=== PATIENT | female | born 1985 | race Caucasian/White ===

== ENCOUNTER 2023-05-13 11:36 | Inpatient (IN) | payer SELFPAY ==
[~2023-05-13] VITALS: Ht 162.6 cm; Wt 136.4 kg
[2023-05-13 12:30] LABS: BASOPHILS % (AUTO) 0.3 % (0-1); EOSINOPHILS # (AUTO) 0.2 X10'3 (0-0.9); EOSINOPHILS % (AUTO) 1.9 % (0-6); HEMATOCRIT 38.4 % (35.0-45.0); HEMOGLOBIN 12.3 g/dl (12.0-16.0); LYMPHOCYTES # (AUTO) 2.4 X10'3 (1.1-4.8); LYMPHOCYTES % (AUTO) 25.5 % (21-51); MEAN CORPUSCULAR HEMOGLOBIN 25.2 PG (27.0-31.0); MEAN CORPUSCULAR HGB CONC 31.9 g/dL (33.0-36.5); MEAN CORPUSCULAR VOLUME 78.8 FL (78-98); MEAN PLATELET VOLUME 8.1 FL (7.4-10.4); MONOCYTES # (AUTO) 0.6 X10'3 (0-0.9); MONOCYTES % (AUTO) 5.9 % (2-12); NEUTROPHILS # (AUTO) 6.3 X10'3 (1.8-7.7); NEUTROPHILS % (AUTO) 66.4 % (42-75); PLATELET COUNT 343 X10'3 (140-440); RED BLOOD COUNT 4.87 X10'6 (4.20-5.60); RED CELL DISTRIBUTION WIDTH 15.7 % (11.5-14.5); WHITE BLOOD COUNT 9.5 X10'3 (4.5-11.0)
[2023-05-13 12:33] LABS: ALANINE AMINOTRANSFERASE 18 U/L (12-78); ALBUMIN 3.5 G/DL (3.4-5.0); ALBUMIN/GLOBULIN RATIO 0.9 (1.1-1.5); ALKALINE PHOSPHATASE 118 IU/L (46-116); ANION GAP 9 (8-16); ASPARTATE AMINO TRANSFERASE 14 U/L (10-37); BILIRUBIN,TOTAL 0.2 MG/DL (0.1-1.0); BLOOD UREA NITROGEN 18 MG/DL (7-18); CALCIUM 9.2 MG/DL (8.5-10.1); CHLORIDE 103 MMOL/L (99-107); CREATININE 0.82 MG/DL (0.40-0.90); GLUCOSE 136 MG/DL (70-104); POTASSIUM 4.2 MMOL/L (3.5-5.1); SODIUM 137 MMOL/L (135-145); TOTAL CARBON DIOXIDE 24.6 MMOL/L (24-32); TOTAL PROTEIN 7.5 G/DL (6.4-8.2); eGFR 78 ML/MIN
[2023-05-13] MEDS ORDERED: aspirin 81mg tab.chew PO ONE (12:50)
[2023-05-13] MEDS ORDERED: nitroGLYCERIN 0.4mg SUBLingual tab SL PRN ×3 (12:50→16:45)
[2023-05-13] MEDS ORDERED: magnesium hydroxide 30ml (MOM) UD suspension PO PRN (14:50)
[2023-05-13] MEDS ORDERED: potassium Cl 40MEQ/1/2NS 520ml 520 ML IV PRN (14:50)
[2023-05-13] MEDS ORDERED: magnesium 4gm in 100ml NS 100 ML IV PRN (14:50)
[2023-05-13] MEDS ORDERED: acetaminophen 325mg tablet PO PRN (14:50)
[2023-05-13] MEDS ORDERED: mag hydrox/Alum hydrox/simeth 30ml oral suspension PO PRN (14:50)
[2023-05-13] MEDS ORDERED: magnesium Cl slow-release 64mg tablet PO PRN (14:50)
[2023-05-13] MEDS ORDERED: potassium Cl 20 mEq SR tablet PO PRN ×2 (14:50)
[2023-05-13] MEDS ORDERED: ondansetron/PF 4mg/2ml inj IV PRN (14:50)
[2023-05-13] MEDS ORDERED: INSU100V9 SQ (15:35)
[2023-05-13] MEDS ORDERED: INSU100C10 SQ (15:35)
[2023-05-13] MEDS ORDERED: LEVO200T PO (15:35)
[2023-05-13] MEDS ORDERED: dextrose 50%-water 50ml dispensing syringe IV PRN ×2 (16:05)
[2023-05-13] MEDS ORDERED: insulin Lispro (HumaLOG) vial - multi-dose SQ SCH (16:05)
[2023-05-13] MEDS ORDERED: MESSAGE TO PHARMACY PO ONE (16:05)
[2023-05-13] MEDS ORDERED: glucagon, human recombinant 1mg kit SUBCUT PRN (16:05)
[2023-05-13] MEDS: atorvastatin 20mg tablet PO SCH (16:05)
[2023-05-13] MEDS ORDERED: DEXTROSE 15 GM of carb/4 tabs (each vial/BOTTLE has 4 tablets) PO PRN ×2 (16:05)
[2023-05-13] MEDS ORDERED: regadenoson 0.4mg/5ml syringe IV PRN (16:45)
[2023-05-13] MEDS ORDERED: NORMAL SALINE IV ONE (16:45)
[2023-05-13] MEDS ORDERED: aminophylline 250mg/10ml inj. IV PRN (16:45)
[2023-05-13] MEDS ORDERED: SINCALIDE IV ONE (16:45)
[2023-05-13] MEDS ORDERED: metoprolol tartrate 1mg/ml inj IV PRN (16:45)
[2023-05-13 18:53] LABS: CLARITY,URINE CLEAR (Clear); COLOR,URINE YELLOW (Yellow); GLUCOSE, URINE NEGATIVE (Neg); KETONES,URINE NEGATIVE (Neg); LEUKOCYTE ESTERASE ,URINE NEGATIVE (Neg); NITRITES, URINE NEGATIVE (Neg); OCCULT BLOOD,URINE NEGATIVE (Neg); PROTEIN,URINE NEGATIVE (Neg); UROBILINOGEN,URINE 0.2 E.U/dL (0.2-1.0)
[2023-05-13 18:55] LABS: UA COLLECTION TYPE CLN CATCH MIDSTREAM
[2023-05-13] MEDS ORDERED: insulin glargine (Lantus) pen - multi-dose SQ SCH (21:00)
[2023-05-13] MEDS: heparin, porcine 5000 units/ml vial SQ SCH (21:43)
[2023-05-13 22:00] VITALS: BP 135/84; PULSE 77; RESP 16; TEMP 98.2; O2SAT 99
[2023-05-13 22:35] VITALS: RESP 16; O2SAT 99
[2023-05-14] VITALS (12 sets, daily range): BP systolic 106–141; BP diastolic 65–88; PULSE 66–103; RESP 14–26; TEMP 98.8–99.2; O2SAT 98–100
--- NOTE | 2023-05-14 01:46 | NUR ---
MESSAGE: [id number] LIA MONROE 38. PT TAKES 50UNITS OF LANTUS IN AM. CAN PT TAKE HOME DOSE IN AM INSTEAD OF LANTUS AT NIGHT PER OUR PROTOCOL? THANK YOU. [phone]
[2023-05-14 06:19] LABS: BASOPHILS % (AUTO) 0.4 % (0-1); EOSINOPHILS # (AUTO) 0.2 X10'3 (0-0.9); EOSINOPHILS % (AUTO) 2.5 % (0-6); HEMATOCRIT 37.9 % (35.0-45.0); HEMOGLOBIN 12.2 g/dl (12.0-16.0); LYMPHOCYTES # (AUTO) 2.3 X10'3 (1.1-4.8); LYMPHOCYTES % (AUTO) 29.3 % (21-51); MEAN CORPUSCULAR HEMOGLOBIN 25.2 PG (27.0-31.0); MEAN CORPUSCULAR HGB CONC 32.2 g/dL (33.0-36.5); MEAN CORPUSCULAR VOLUME 78.3 FL (78-98); MONOCYTES # (AUTO) 0.4 X10'3 (0-0.9); NEUTROPHILS # (AUTO) 4.9 X10'3 (1.8-7.7); NEUTROPHILS % (AUTO) 62.8 % (42-75); PLATELET COUNT 325 X10'3 (140-440); RED BLOOD COUNT 4.84 X10'6 (4.20-5.60); WHITE BLOOD COUNT 7.8 X10'3 (4.5-11.0)
--- NOTE | 2023-05-14 06:38 | NUR ---
Problems reprioritized. Patient report given, questions answered & plan of care reviewed with BRYN MANTILLA.
[2023-05-14 06:51] LABS: ALANINE AMINOTRANSFERASE 16 U/L (12-78); ALBUMIN 3.3 G/DL (3.4-5.0); ALBUMIN/GLOBULIN RATIO 0.9 (1.1-1.5); ALKALINE PHOSPHATASE 115 IU/L (46-116); ANION GAP 9 (8-16); ASPARTATE AMINO TRANSFERASE 10 U/L (10-37); BILIRUBIN,TOTAL 0.2 MG/DL (0.1-1.0); BLOOD UREA NITROGEN 13 MG/DL (7-18); BUN/CREATININE RATIO 16.5 (10.0-20.0); CALCIUM 8.7 MG/DL (8.5-10.1); CHLORIDE 106 MMOL/L (99-107); CHOL/HDL RATIO 2.8 (0.00-4.99); CHOLESTEROL 111 MG/DL (0-200); CREATININE 0.79 MG/DL (0.40-0.90); GLUCOSE 135 MG/DL (70-104); HDL CHOLESTEROL 39 MG/DL (35-60); LDL CHOLESTEROL 69 MG/DL (50-100); MAGNESIUM 1.8 MG/DL (1.5-2.4); POTASSIUM 4.3 MMOL/L (3.5-5.1); SODIUM 138 MMOL/L (135-145); TOTAL CARBON DIOXIDE 23.4 MMOL/L (24-32); TRIGLYCERIDES 71 MG/DL (20-135); eGFR 81 ML/MIN
--- NOTE | 2023-05-14 06:53 | NUR ---
Patient in room ORTHO 4014. I have received report from ONEIDA Dalton and had the opportunity to ask questions and assume patient care.
[2023-05-14] MEDS ORDERED: levoTHYROXINE 100mcg tablet PO SCH (07:00)
[2023-05-14] MEDS: atorvastatin 20mg tablet PO SCH (07:50)
[2023-05-14] MEDS: heparin, porcine 5000 units/ml vial SQ SCH (07:51)
[2023-05-14] MEDS ORDERED: aspirin 81mg, enteric-coated 1 TAB TABLET.DR PO SCH (08:00)
--- NOTE | 2023-05-14 15:00 | NUR ---
I have reviewed and agree with the interventions, assessments, and documentation by Olivia Matthews LVN.
--- NOTE | 2023-05-14 15:53 | NUR ---
Diabetes consult: Pt presents with an A1c 8% and BG of 135-186mg/dl per EMR. Pt and pt's daughter at bedside during time of visit. Pt reports just moving to [place] recently and would like help connecting to a primary doctor for DM management; attempted to contact case management and left a message. Pt reports prior A1c of 14% and BG in the 400mg/dl 2 years ago. When discussed new A1c of 8%, pt was happy with the improvement and states she has been working hard on improving her BG and A1c. Pt reports eating a balanced carbohydrate controlled diet at home, counts carbohydrate for her sliding scaled insulin, and takes insulin as prescribed. Provided verbal/written diabetes nutrition education to pt with RD contact information. Encouraged pt to reach out for any nutrition questions or concerns. Will continue to monitor. Addendum: 05/14/23 at [address] Amended: Links added.
[2023-05-14] MEDS ORDERED: ATOR20TA66 PO (16:26)
[2023-05-14] MEDS ORDERED: ASPI-1071 PO (16:26)
[2023-05-14] MEDS ORDERED: METR-159 PO (16:26)
[2023-05-14] MEDS ORDERED: EMPA10TA PO (16:26)
[2023-05-14] MEDS ORDERED: CIPR-20 PO (16:26)
[2023-05-14] MEDS ORDERED: NITR0.4T51 SL (16:26)
[2023-05-14] MEDS ORDERED: METO-395 PO (16:26)
--- NOTE | 2023-05-14 17:46 | NUR ---
Patient discharge home with family. MD called and updated medication list which could not be edited after it was finalized. Changes to medication list is in resident chart and called into [facility] on [facility] [phone]. Discharge information was provided and reviewed with patient, whom verbalize understanding. Patient discharge home with all belongings. Addendum: 05/14/23 at 1805 by Robert Felix LVN Patient was also informed to f/u with Dr. Lemus with address and phone number added to discharge paperwork. [facility] [facility] [address] in [place] [address]
== END 2023-05-14 17:30 | disposition home or self-care (01) | DRG 313 ==
LOC: ER 11:37 → ED HOLD 14:56 → EDBEDREQ 19:55 → ORTHO 4S 22:00
PROVIDERS: ADMIT Family Medicine; ATTEND Family Medicine
PROC: 4A02XM4 Measurement of Cardiac Total Activity, External Approach (ICD-10-PCS; principal; 2023-05-13)
PROC: 3E073KZ Introduction of Other Diagnostic Substance into Coronary Artery, Percutaneous Approach (ICD-10-PCS; 2023-05-13)
DX: R07.89 Other chest pain (principal); Z68.43 Body mass index [BMI] 50.0-59.9, adult; K80.10 Calculus of gallbladder with chronic cholecystitis without obstruction; I25.10 Atherosclerotic heart disease of native coronary artery without angina pectoris; E66.01 Morbid (severe) obesity due to excess calories; E11.9 Type 2 diabetes mellitus without complications; E03.9 Hypothyroidism, unspecified; K76.0 Fatty (change of) liver, not elsewhere classified; I25.2 Old myocardial infarction; Z95.1 Presence of aortocoronary bypass graft; Z95.5 Presence of coronary angioplasty implant and graft; Z79.890 Hormone replacement therapy; Z83.3 Family history of diabetes mellitus; Z87.891 Personal history of nicotine dependence; Z71.3 Dietary counseling and surveillance; Z91.199 Patient's noncompliance with other medical treatment and regimen due to unspecified reason; Z79.82 Long term (current) use of aspirin; Z79.899 Other long term (current) drug therapy
CPT/HCPCS: 36415; 71045; 76700; 78452; 80053; 80061; 81003; 82948; 83036; 83735; 83880; 84145; 84439; 84443; 84484; 85025; 85610; 87081; 93017; 99285; A9500; G0378; J1644; J1815; J2785

== ENCOUNTER 2023-09-26 23:03 | Emergency (ER) | payer SELFPAY ==
[~2023-09-26] VITALS: Ht 165.1 cm; Wt 186.0 kg
[~2023-09-26 23:03] MED LIST: ASPI-1071 PO; ATOR20TA66 PO; EMPA10TA PO; INSU100C10 SQ; INSU100V9 SQ; LEVO200T PO; METO-395 PO; NITR0.4T51 SL
[2023-09-26 23:08] VITALS: BP 146/77; PULSE 92; RESP 18; TEMP 98.6; O2SAT 97
[2023-09-26 23:36] LABS: HEMOGLOBIN 12.5 g/dl (12.0-16.0)
[2023-09-26 23:37] LABS: BASOPHILS % (AUTO) 0.4 % (0-1); EOSINOPHILS # (AUTO) 0.1 X10'3 (0-0.9); EOSINOPHILS % (AUTO) 1.5 % (0-6); HEMATOCRIT 39.4 % (35.0-45.0); LYMPHOCYTES # (AUTO) 2.8 X10'3 (1.1-4.8); LYMPHOCYTES % (AUTO) 29.2 % (21-51); MEAN CORPUSCULAR HEMOGLOBIN 24.7 PG (27.0-31.0); MEAN CORPUSCULAR HGB CONC 31.8 g/dL (33.0-36.5); MEAN CORPUSCULAR VOLUME 77.8 FL (78-98); MONOCYTES # (AUTO) 0.6 X10'3 (0-0.9); MONOCYTES % (AUTO) 6.2 % (2-12); NEUTROPHILS % (AUTO) 62.7 % (42-75); PLATELET COUNT 366 X10'3 (140-440); RED BLOOD COUNT 5.06 X10'6 (4.20-5.60); RED CELL DISTRIBUTION WIDTH 15.9 % (11.5-14.5); WHITE BLOOD COUNT 9.5 X10'3 (4.5-11.0)
[2023-09-26 23:44] LABS: ALANINE AMINOTRANSFERASE 21 U/L (12-78); ALBUMIN 3.7 G/DL (3.4-5.0); ALBUMIN/GLOBULIN RATIO 0.9 (1.1-1.5); ALKALINE PHOSPHATASE 115 IU/L (46-116); ANION GAP 6 (8-16); ASPARTATE AMINO TRANSFERASE 10 U/L (10-37); BILIRUBIN,TOTAL 0.5 MG/DL (0.1-1.0); BLOOD UREA NITROGEN 10 MG/DL (7-18); BUN/CREATININE RATIO 11.6 (10.0-20.0); CALCIUM 8.9 MG/DL (8.5-10.1); CHLORIDE 103 MMOL/L (99-107); CREATININE 0.86 MG/DL (0.40-0.90); GLUCOSE 159 MG/DL (70-104); POTASSIUM 3.6 MMOL/L (3.5-5.1); SODIUM 136 MMOL/L (135-145); TOTAL CARBON DIOXIDE 27.1 MMOL/L (24-32); TOTAL PROTEIN 7.7 G/DL (6.4-8.2); eCRCL 80 ML/MIN; eGFR 74 ML/MIN
[2023-09-26 23:51] LABS: PRO BRAIN NATRIURETIC PEPTIDE 222 PG/ML (0-125)
== END 2023-09-27 01:52 | disposition left against medical advice (07) ==
LOC: ER 23:04
DX: R07.89 Other chest pain (principal); Z53.21 Procedure and treatment not carried out due to patient leaving prior to being seen by health care provider
CPT/HCPCS: 71045; 80053; 83880; 84484; 85025; 93005; 99281; 99285

== ENCOUNTER 2024-06-30 13:19 | Emergency (ER) | payer OTHER ==
[~2024-06-30] VITALS: Ht 162.6 cm; Wt 144.4 kg
[2024-06-30 13:46] LABS: BASOPHILS # (AUTO) 0.1 X10'3 (0-0.2); BASOPHILS % (AUTO) 0.7 % (0-1); EOSINOPHILS # (AUTO) 0.1 X10'3 (0-0.9); EOSINOPHILS % (AUTO) 1.7 % (0-6); HEMATOCRIT 43.5 % (35.0-45.0); HEMOGLOBIN 13.8 g/dl (12.0-16.0); LYMPHOCYTES # (AUTO) 2.1 X10'3 (1.1-4.8); LYMPHOCYTES % (AUTO) 24.8 % (21-51); MEAN CORPUSCULAR HEMOGLOBIN 25.1 PG (27.0-31.0); MEAN CORPUSCULAR HGB CONC 31.8 g/dL (33.0-36.5); MEAN CORPUSCULAR VOLUME 78.8 FL (78-98); MEAN PLATELET VOLUME 8.8 FL (7.4-10.4); MONOCYTES # (AUTO) 0.4 X10'3 (0-0.9); MONOCYTES % (AUTO) 4.3 % (2-12); NEUTROPHILS # (AUTO) 5.8 X10'3 (1.8-7.7); NEUTROPHILS % (AUTO) 68.5 % (42-75); PLATELET COUNT 310 X10'3 (140-440); RED BLOOD COUNT 5.52 X10'6 (4.20-5.60); RED CELL DISTRIBUTION WIDTH 14.8 % (11.5-14.5); WHITE BLOOD COUNT 8.5 X10'3 (4.5-11.0)
[2024-06-30 13:54] VITALS: TEMP 98
[2024-06-30 14:10] LABS: ALANINE AMINOTRANSFERASE 21 U/L (12-78); ALBUMIN 3.5 G/DL (3.4-5.0); ALBUMIN/GLOBULIN RATIO 0.9 (1.1-1.5); ALKALINE PHOSPHATASE 129 IU/L (46-116); ANION GAP 12 (8-16); ASPARTATE AMINO TRANSFERASE 7 U/L (10-37); BILIRUBIN,TOTAL 0.3 MG/DL (0.1-1.0); BLOOD UREA NITROGEN 17 MG/DL (7-18); BUN/CREATININE RATIO 15.2 (10.0-20.0); CALCIUM 9.3 MG/DL (8.5-10.1); CHLORIDE 101 MMOL/L (99-107); CREATININE 1.12 MG/DL (0.40-0.90); GLUCOSE 392 MG/DL (70-104); POTASSIUM 4.4 MMOL/L (3.5-5.1); PRO BRAIN NATRIURETIC PEPTIDE 150 PG/ML (0-125); SODIUM 136 MMOL/L (135-145); TOTAL CARBON DIOXIDE 23.5 MMOL/L (24-32); TOTAL PROTEIN 7.5 G/DL (6.4-8.2); eCRCL 58 ML/MIN; eGFR 54 ML/MIN
[2024-06-30 14:41] LABS: APTT 26 SECONDS (22-32); PROTHROMBIN TIME 10.3 SECONDS (9.0-12.0)
[2024-06-30 15:25] LABS: HCG SERUM QL NEGATIVE
[2024-06-30 16:02] LABS: FREE T4 (FREE THYROXINE) 1.13 NG/DL (0.73-1.40); THYROID STIMULATING HORMONE 6.14 ulU/ml (0.34-4.50)
[2024-06-30 17:57] LABS: BILIRUBIN,URINE NEGATIVE (Neg); CLARITY,URINE CLEAR (Clear); COLOR,URINE YELLOW (Yellow); GLUCOSE, URINE >=1000 mg/dl (Neg); KETONES,URINE TRACE mg/dl (Neg); LEUKOCYTE ESTERASE ,URINE NEGATIVE (Neg); NITRITES, URINE NEGATIVE (Neg); OCCULT BLOOD,URINE NEGATIVE (Neg); PROTEIN,URINE TRACE mg/dl (Neg); UROBILINOGEN,URINE 0.2 E.U/dL (0.2-1.0)
[2024-06-30 18:02] LABS: UA COLLECTION TYPE CLN CATCH MIDSTREAM
[2024-06-30 18:05] LABS: URINE AMPHETAMINE SCREEN NEGATIVE (Neg); URINE BARBITUATE SCREEN NEGATIVE (Neg); URINE BENZODIAZEPINES SCREEN NEGATIVE (Neg); URINE CANNABINOID SCREEN POSITIVE (Neg); URINE COCAINE SCREEN NEGATIVE (Neg); URINE METHADONE SCREEN NEGATIVE (Neg); URINE OPIATE SCREEN NEGATIVE (Neg); URINE PHENCYCLIDINE SCREEN NEGATIVE (Neg)
[2024-06-30 18:09] LABS: BACTERIA,URINE NONE SEEN /HPF (Neg); RBC,URINE 0-2 /HPF (0-2); SQUAMOUS EPITHELIAL CELL,UR FEW /LPF (FEW); WBC,URINE 0-4 /HPF (0-4)
[2024-06-30] MEDS: normal saline 1000ml 1,000 ML IV ONE (18:57)
[2024-06-30] MEDS: proCHLORperazine 10 MG/2 ml inj IV ONE (19:01)
[2024-06-30] MEDS: acetaminophen 1,000mg/100ml IV 100 ML IV ONE (19:03)
[2024-06-30] MEDS: ketorolac trometh 15mg/ml vial 15 MG/ML ML IV ONE (19:23)
[2024-06-30 19:53] VITALS: BP 153/95; PULSE 70; RESP 12; O2SAT 96
== END 2024-06-30 19:52 | disposition home or self-care (01) ==
LOC: ER 13:20
DX: R07.89 Other chest pain (principal); R51.9 Headache, unspecified; I25.10 Atherosclerotic heart disease of native coronary artery without angina pectoris; I25.2 Old myocardial infarction; Z79.899 Other long term (current) drug therapy; Z79.82 Long term (current) use of aspirin; Z79.4 Long term (current) use of insulin; Z95.1 Presence of aortocoronary bypass graft
CPT/HCPCS: 36415; 71045; 80053; 80305; 81001; 83880; 84439; 84443; 84484; 84703; 85025; 85610; 85730; 93005; 96361; 96374; 96375; 99285; J0131; J0780; J1885; J7030

== ENCOUNTER 2024-09-18 18:03 | Emergency (ER) | payer OTHER ==
[~2024-09-18] VITALS: Ht 162.6 cm; Wt 136.4 kg
[2024-09-18 18:05] VITALS: BP 150/104; PULSE 82; O2SAT 97
[2024-09-18] MEDS: ibuprofen tablet 400 MG TABLET PO ONE (19:52)
[2024-09-18 19:53] VITALS: RESP 16
[2024-09-18] MEDS: DOXYCYCLINE 100MG CAPSULE PO STA (19:53)
[2024-09-18] MEDS: HYDROcodone/acetaminophen 5mg/325mg tablet PO ONE (19:53)
[2024-09-18] MEDS: metFORMIN 500mg tablet PO ONE (19:54)
[2024-09-18] MEDS: fluconazole 100mg tablet PO ONE (19:54)
[2024-09-18] MEDS ORDERED: METF-1203 PO (20:02)
[2024-09-18] MEDS ORDERED: FLUC150T22 PO (20:02)
[2024-09-18] MEDS ORDERED: DOXY100C43 PO (20:02)
[2024-09-18] MEDS ORDERED: HYDR-3965 PO (20:02)
== END 2024-09-18 20:15 | disposition home or self-care (01) ==
LOC: ER 18:03
DX: L02.416 Cutaneous abscess of left lower limb (principal); E11.9 Type 2 diabetes mellitus without complications; I25.10 Atherosclerotic heart disease of native coronary artery without angina pectoris; I25.2 Old myocardial infarction; Z95.1 Presence of aortocoronary bypass graft; Z79.82 Long term (current) use of aspirin; Z79.899 Other long term (current) drug therapy; Z79.84 Long term (current) use of oral hypoglycemic drugs
CPT/HCPCS: 99284

== ENCOUNTER 2025-06-29 17:20 | Emergency (ER) | payer BC, OTHER ==
[~2025-06-29] VITALS: Ht 160 cm; Wt 139.3 kg
[2025-06-29 17:21] VITALS: TEMP 97.4
--- NOTE | 2025-06-29 17:55 | RADIOLOGY REPORT ---
CLINICAL INDICATION: KNEE PAIN TECHNIQUE: Right DI KNEE, COMP 4 VW MIN Comparison: None FINDINGS/IMPRESSION: : There is no evidence of acute fracture or dislocation. Small joint effusion. Post ACL reconstruction.
[2025-06-29] MEDS ORDERED: HYDR-3965 PO (18:08)
--- NOTE | 2025-06-29 18:10 | Physician Documentation ---
History of Present Illness ~ Chief Complaint: Knee Pain Stated Complaint: RIGHT LEG PAIN Time Seen by MD: 17:32 Primary Medical Doctor: none Mode of Arrival: POV HPI 40-year-old female presents to the ED with a complaint of acute onset right knee pain when she heard a loud pop while stretching 3-4 days ago. States that she has had prior surgery on the knee and had an MCL repair. She reports increased instability in her right knee. Says that she has not order to get an MRI but does not want to wait for the referral" Day of Onset: Jun 29, 2025 Tetanus witin 5 years: No Medication Reconciliation Allergies: Coded Allergies: gabapentin (Verified Allergy, Unknown, ANAPHALAXIS, 06/29/25) Scheduled Aspirin (Ecotrin*), 81 TAB PO DAILY Atorvastatin Calcium (Atorvastatin Calcium), 40 MG PO DAILY Empagliflozin (Jardiance), 1 TAB PO DAILY Insulin Glargine,Hum.rec.anlog (Lantus), 50 UNIT SQ QAM, (Reported) Insulin Lispro (Humalog), 1 ML SQ TID, (Reported) Levothyroxine Sodium (Synthroid), 1 TAB PO QAM, (Reported) Metoprolol Succinate (Metoprolol Succinate), 0.5 TAB PO BID Scheduled PRN Nitroglycerin SL* (Nitrostat SL*), 0.4 MG SL Q5M PRN for Chest pain Q5min PRNx3- call Past Medical History Past Medical History: Coronary Artery Disease, Myocardial Infarction Past Surgical History: coronary bypass surgery Patient History: Diabetes mellitus (DM) Alcohol Use: None Drug Use: none Lives with: Family Lives In: Home Review of Systems All Other Systems at this time: Reviewed and Negative ROS As stated above in the HPI, otherwise all systems are reviewed and negative. Physical Exam Vital Signs: Temperature: 97.4, Source: Temporal, Heart Rate: 74, Respiratory Rate: 16, BP: 176/97, Pulse Oximetry: 97, Weight: 139.300 Oxygen Flow Rate: 0 Physical Exam General: Alert, no apparent distress. Extremities: He would have Reuben's ,positive Olga's drawer test Neurologic: Oriented x4. Psychiatric: Normal mood and affect. Skin: Normal color, warm and dry. No edema, no ecchymosis. Progress Results/Orders Results/Orders Orders - FLAVIO EMERSON NP Ketorolac Trometh 30mg/Ml Vial (Toradol (06/29/25 18:05) Ortho Orders (06/29/25 ) Vital Signs 06/29/25 06/29/25 17:21 17:38 Temp 97.4 Pulse 74 Resp 16 B/P (MAP) 176/97 Pulse Ox 97 O2 Flow Rate 0 Medical Decision Making Findings He was suspected the patient re-injured her right knee. Based on my exam there is some supportive evidence indicating she has acute onset internal knee derangement. She will need to follow up in the outpatient setting to obtain the appropriate imaging. Meantime I am going to place her in a knee immobilizer and send her home with some pain meds. Departure Disposition: HOME / SELF CARE / HOMELESS Impression: Primary Impression: Effusion of knee Additional Impression: Knee pain Condition: Stable Discharge Instructions: Acute Knee Pain, Adult Referrals: NO PRIMARY CARE PROVIDER (PCP) Prescriptions Hydrocodone Bit/Acetaminophen 5/325 MG ([place] 5/325 MG) 5 Mg/325 Mg Tablet 1 TAB PO Q6H PRN for pain, #14 TAB Prov: FLAVIO EMERSON NP 06/29/25 Signature Scribe Signature: h Attestation: Scribed for Flavio Emerson Security Officer Supervisor by Flavio Massey NP . 06/29/25 18:10 FLAVIO EMERSON NP Jun 29, 2025 18:10
[2025-06-29] MEDS: ketorolac trometh 30MG/ML vial 30 MG/ML VIAL IM ONE (18:25)
[2025-06-29 18:26] VITALS: BP 178/94; PULSE 78; RESP 16; O2SAT 98
== END 2025-06-29 18:30 | disposition home or self-care (01) ==
LOC: ER 17:20
DX: M25.461 Effusion, right knee (principal); M25.561 Pain in right knee; E11.9 Type 2 diabetes mellitus without complications; I25.10 Atherosclerotic heart disease of native coronary artery without angina pectoris; I25.2 Old myocardial infarction; Z88.6 Allergy status to analgesic agent; Z88.8 Allergy status to other drugs, medicaments and biological substances; Z95.1 Presence of aortocoronary bypass graft; Z79.899 Other long term (current) drug therapy; Z79.4 Long term (current) use of insulin
CPT/HCPCS: 29505; 73564; 96372; 99283; J1885